=== PATIENT | female | born 1980 | race Caucasian/White ===

== ENCOUNTER 2017-03-04 16:39 | Inpatient (IN) | payer OTHER ==
[~2017-03-04] VITALS: Ht 152.4 cm; Wt 72.6 kg
[~2017-03-04 16:39] MED LIST: LIDOCAINE PF 1% 30ML(POUR BTL) INJ ONE
[2017-03-04] MEDS ORDERED: OXYTOCIN/NORMAL SALINE 1,000 ML IV SCH (22:58)
[2017-03-04] MEDS ORDERED: TERBUTALINE SULFATE 1 MG/ML VIAL SUBCUT ONE (23:00)
[2017-03-04] MEDS ORDERED: NALBUPHINE HCL 10 MG/ML AMP IVP PRN (23:00)
[2017-03-04] MEDS ORDERED: DINOPROSTONE 10 MG SUPP VG ONE (23:00)
[2017-03-04 23:17] VITALS: BP_SYST 111
[2017-03-04 23:50] LABS: BASOPHILS % (AUTO) 0.3 % (0.0-2.0); EOSINOPHILS # (AUTO) 0.1 K/uL (0.0-0.4); EOSINOPHILS % (AUTO) 0.9 % (0.0-4.0); HEMATOCRIT 34.4 % (36-48); HEMOGLOBIN 11.9 g/dL (12.0-16.0); LYMPHOCYTES # (AUTO) 1.5 K/uL (1.0-5.5); LYMPHOCYTES % (AUTO) 12.8 % (20.5-51.5); MEAN CORPUSCULAR HEMOGLOBIN 32 pg (27-31); MEAN CORPUSCULAR HGB CONC 35 % (32-36); MEAN CORPUSCULAR VOLUME 93 fL (79.0-98.0); MONOCYTES # (AUTO) 0.8 K/uL (0.0-1.0); MONOCYTES % (AUTO) 6.4 % (1.7-9.3); NEUTROPHILS # (AUTO) 9.3 K/uL (1.8-7.7); NEUTROPHILS % (AUTO) 79.6 % (40.0-70.0); PLATELET COUNT (AUTO) 175 K/uL (130-430); RED BLOOD CELL COUNT(AUTO) 3.72 MIL/uL (4.2-6.2); RED CELL DISTRIBUTION WIDTH 13.1 % (9.0-15.0); WHITE BLOOD COUNT (AUTO) 11.7 K/uL (4.8-10.8)
[2017-03-05] MEDS: LR 1,000 ML IV SCH ×2 (00:40→04:25)
[2017-03-05] MEDS ORDERED: FENT2mCg/mL-ROPIVA0.2%/NS EPID 150 ML EP ONE (07:49)
[2017-03-05] MEDS ORDERED: FENT2mCg/mL-ROPIVA0.2%/NS EPID 150 ML EP SCH (07:49)
[2017-03-05] MEDS ORDERED: OXYTOCIN/NORMAL SALINE 1,000 ML IV ONE (15:59)
[2017-03-05] MEDS ORDERED: OXYTOCIN/NORMAL SALINE 1,000 ML IV SCH (15:59)
[2017-03-05] MEDS ORDERED: ANUSOL 1 EA SUPP.RECT (PREPARATION H) RC PRN (16:00)
[2017-03-05] MEDS ORDERED: DOCUSATE SODIUM 100 MG CAPSULE PO PRN (16:00)
[2017-03-05] MEDS ORDERED: METHYLERGONOVINE MALEATE 0.2 MG TABLET PO PRN (16:00)
[2017-03-05] MEDS ORDERED: DERMOPLAST SPRAY TP PRN (16:00)
[2017-03-05] MEDS ORDERED: MEASLES,MUMPS&RUBELLA VACC/PF 12500 UNIT/0.5 ML VIAL SUBQ PRN (16:00)
[2017-03-05] MEDS ORDERED: HYDROCORTISONE 0.5%, 28.35 GM TOPICAL CREAM TP PRN (16:00)
[2017-03-05] MEDS ORDERED: RHO(D) IMMUNE GLOBULIN/MALTOSE 1500 UNITS/1.3 ML (WINHRO) IM PRN (16:00)
[2017-03-05] MEDS ORDERED: SENNOSIDES/DOCUSATE SODIUM 1 TAB TABLET(SENOKOT-S) PO PRN (16:00)
[2017-03-05] MEDS ORDERED: LANOLIN 7 GM OINT. TP PRN (16:00)
[2017-03-05] MEDS ORDERED: OXYCODONE/ACETAMINOPHEN 5-325 TABLET PO PRN (16:00)
[2017-03-05] MEDS ORDERED: GLYCERIN/WITCH HAZEL (TUCKS PADS) TP PRN (16:00)
[2017-03-05] MEDS: IBUPROFEN 600 MG TABLET PO SCH (17:58)
[2017-03-05] MEDS ORDERED: TEMAZEPAM 15 MG CAPSULE PO PRN (21:00)
[2017-03-06] MEDS: IBUPROFEN 600 MG TABLET PO SCH ×4 (02:30→13:57)
[2017-03-06 07:31] LABS: HEMOGLOBIN 8.8 g/dL (12.0-16.0)
[2017-03-06] MEDS: OXYCODONE/ACETAMINOPHEN 5-325 TABLET PO PRN ×3 (09:46→22:17)
== END 2017-03-06 22:40 | disposition home or self-care (01) | DRG 775 ==
LOC: SPU 22:40
PROVIDERS: ADMIT Specialist; ATTEND Specialist
PROC: 10E0XZZ Delivery of Products of Conception, External Approach (ICD-10-PCS; principal; 2017-03-04)
PROC: 0HQ9XZZ Repair Perineum Skin, External Approach (ICD-10-PCS; 2017-03-04)
PROC: 3E0P7GC Introduction of Other Therapeutic Substance into Female Reproductive, Via Natural or Artificial Opening (ICD-10-PCS; 2017-03-04)
PROC: 3E0S3CZ (ICD-10-PCS; 2017-03-04)
PROC: 00HU33Z Insertion of Infusion Device into Spinal Canal, Percutaneous Approach (ICD-10-PCS; 2017-03-04)
DX: O99.344 Other mental disorders complicating childbirth (principal); F32.9 Major depressive disorder, single episode, unspecified; O70.0 First degree perineal laceration during delivery; Z3A.39 39 weeks gestation of pregnancy; Z37.0 Single live birth
CPT/HCPCS: 36415; 81002-TC; 85018-TC; 85025; 86592; 86886; 86900; 86901; J2001; J2300; J2590; J3010